=== PATIENT | male | born 1975 | race Caucasian/White ===

== ENCOUNTER 2018-05-04 12:45 | Inpatient (IN) | payer BC, OTHER ==
[~2018-05-04] VITALS: Ht 180.3 cm; Wt 96.6 kg
--- NOTE | ~2018-05-04 | H ---
[facility] [place] [address] HISTORY AND PHYSICAL Name: SAJI GOODE Room #: 512-P ADM IN M.R.#: [id number] Admission: 05/04/18 Attend Phys: Chidi Huber MD Discharge: Date of : 75 Report #: [id number] THIS REPORT FOR: //name// CC: Chidi Huber [facility] unknown DATE OF SERVICE: 05/04/2018 HISTORY OF PRESENT ILLNESS: A 43-year-old white male originally admitted to [facility] on 05/02/2018 after his found him having a seizure and falling out of bed. He was admitted to [facility]. He was thought to have alcohol withdrawal seizures. He was noted to have a history of drinking 2 glasses of whiskey per day, but apparently went "cold turkey." His course was complicated by alcohol withdrawal, was needing Precedex for sedation. Neurology was consulted along with Psychiatry. He was thought to have alcohol withdrawal seizures, although EEG showed abnormalities of the left occipital lobe. He underwent an MRI of the brain, which indeed showed multiple subacute ischemic infarcts including left cerebral hemisphere and a left occipital area. There was a small focus of hemorrhagic transformation of the left occipital area. He was treated in the Intensive Care Unit for an acute hypoxemic respiratory failure, likely aspiration pneumonia, was noted to have vascular congestion, pulmonary edema. He had acute renal insufficiency that resolved. Pulmonary Medicine was closely involved. Neurology followed closely, noted that the CVA was cryptogenic, but that a workup to include any cardiac embolization is needed and will need to be arranged by Cardiology. He was felt to be ready for transfer for acute in-hospital inpatient rehabilitation. There is reference to an event monitor that will need to be placed when being discharged from the rehab coles. At this point, he has been admitted for acute in-hospital inpatient rehabilitation. He has deficits with right-sided coordination and balance issues. He is also being further assessed regarding cognitive issues. PAST MEDICAL HISTORY: Prior history of ETOH treatment. He was apparently in an alcohol rehab facility for 30 days in [place]. He had some followups with AA, but never had a sponsor and unfortunately relapsed. He has a history of hypertension. HABITS: Include daily tobacco 1 pack per day premorbidly and he plans on quitting. MEDICATIONS: Please see the full medication listing. This includes vitamins, herbals, and supplements. ALLERGIES: No known drug allergies. SOCIAL HISTORY: Works in IT. He lives with his . They have five children with 3 in the house. This is apparently his second [place] [address] HISTORY AND PHYSICAL Name: SAJI GOODE Room #: 512-P [facility] IN M.R.#: [id number] Admission: 05/04/18 Attend Phys: Chidi Huber MD Discharge: Date of : 75 Report #: [id number] for 10 years. He was fully independent, ambulatory, did computer work and apparently had started drinking more at night while on the computer. REVIEW OF SYSTEMS: No current complaints of chest pain, shortness of breath, abdominal discomfort. No complaints of extremity pain. He has concern regarding decreased coordination and decreased balance. PHYSICAL EXAMINATION: GENERAL: The patient was actually seen late yesterday 43-year-old white male, in no obvious distress. VITAL SIGNS: Temperature 98.7, pulse 104, respirations 18, blood pressure 125/85. NEUROLOGIC: Facies appeared to be symmetric. No obvious visual field neglect to confrontation able to verbalize and follow basic commands without difficulty. CHEST: Sounded clear to auscultation. CARDIAC: Regular rate and rhythm. ABDOMEN: Bowel sounds positive, nontender. GENITOURINARY AND RECTAL: Deferred. EXTREMITIES: He has functional range of motion of both upper extremities with some decreased coordination of that right upper extremity with some dysmetria and some decreased fine finger dexterity. Right lower extremity, [id number] may have some mild decreased coordination. Upper extremity strength is a grade 4+, right lower extremity strength is grade 4+, left upper and left lower extremity strength is 4+. DTRs are 1 both upper extremities 1 both lower extremities. No obvious sensory decrease to simultaneous stimulation. IMPRESSION: This is a 43-year-old right-handed white male with the following problem list: 1. 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 2. Left occipital infarct with hemorrhagic transformation. 3. Right-sided dysmetria. 4. Need to more closely rule out any visual field or visual deficits with the noted left occipital cerebrovascular accident. 5. Acute hypoxemic respiratory failure, which appears improved/resolved. 6. Severe alcohol withdrawal, which appears resolved. 7. Pancreatitis. 8. Seizures. 9. Aspiration pneumonia. 10. Pulmonary edema. 11. Alcohol use disorder. 12. Hypertension. PLAN: The patient is admitted for acute in-hospital inpatient rehabilitation. We will need a repeat MRI of the brain in approximately 1 week. As per Neurology recommendation with the anticipation that the hemorrhagic transformation/hemorrhagic change should be resorbed by then. We will also ask [address] [address] HISTORY AND PHYSICAL Name: SAJI GOODE Room #: 512-P ADM IN M.R.#: [id number] Admission: 05/04/18 Attend Phys: Chidi Huber MD Discharge: Date of : 75 Report #: [id number] Cardiology to be involved as indicated above. From a postadmission physician evaluation perspective, there are no relevant changes since the preadmission screening. Please see the review of prior and current medical and functional conditions and comorbidities. Please see the patient's previous and current functional status. As far as risk of complications, the patient has multiple medical comorbidities as noted above. Initial plan of care involves the interdisciplinary acute inpatient rehabilitation program with the goal of maximizing his functional independence, so that he can hopefully return back to his prior living situation. Measurable functional goals would be for the patient to become modified independent with transfers, mobility, ADLs, cognition and communication so they can return back home. Prognosis is reasonably good with estimated length of stay probably 7-10 days, pending progress. Potential barriers would include the multiple medical comorbidities and decreased functional status. By: [id number] Chidi Huber MD /nt
--- NOTE | ~2018-05-04 | PLAN ---
[facility] [place] [address] REHAB UNIT PLAN OF CARE Name: SAJI GOODE Room #: 512-P ADM IN M.R.#: [id number] Admission: 05/04/18 Attend Phys: Chidi Huber MD Discharge: Date of : 75 Report #: [id number] THIS REPORT FOR: //name// CC: Wyatt Bridger DO Chidi Huber [facility] unknown DATE OF SERVICE: 05/07/2018 PROGRESS NOTE/OVERALL PLAN OF CARE SUBJECTIVE: The patient is seen back today in followup. He is in no distress. Last recorded temperature 36.5, pulse 90, respirations 18, blood pressure 136/92. He is alert, pleasant, and oriented. He has done well from a functional mobility perspective and is now modified independent in his room without gait aids. He is ambulating 350 feet without a device currently with supervision and is going up and down 12 steps contact guard. In occupational therapy, he is noted to only need setup for lower body dressing. In speech therapy, he is noted to have moderate memory deficits and mild cognitive deficits. ASSESSMENT: 1. 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 2. Left occipital infarct with hemorrhagic transformation. 3. Right-sided dysmetria. 4. Seizures, noted to be alcohol withdrawal seizures. 5. Acute hypoxic respiratory failure, which resolved. 6. Pancreatitis. 7. Alcohol use disorder. 8. Hypertension. PLAN: The overall plan of care is based on the preadmission screen, post-admission physician evaluation, and information garnered from therapy assessments. 1. Estimated length of stay is we will plan for discharge tomorrow. 2. Medical prognosis is good. 3. Anticipated interventions include the interdisciplinary acute inpatient rehabilitation program. 4. Anticipated functional outcomes are for him to return back to the home setting with his tomorrow. We will be determining with the therapist what type of outpatient therapy would be warranted. I indicated to him that he should not drive and should not return back to work until he follows up with his primary care physician, Dr. Wyatt Sparks in [place]. We will also need [facility] [address] [place] [address] REHAB UNIT PLAN OF CARE Name: SAJI GOODE Room #: 512-P [facility] IN ..#: [id number] Admission: 05/04/18 Attend Phys: Chidi Huber MD Discharge: Date of : 75 Report #: [id number] outpatient alcohol rehabilitation involvement with case management to be involved in setting this up as well. Plan is for discharge tomorrow. By: [id number] Chidi Huber MD /nt
[~2018-05-04 12:45] MED LIST: ASPIR 8181 MG PO; BUSPIRONE HCL10 MG PO; CARDIZEM CD 18180 M3 PO; CHLORDIAZEPOXID25 M1 PO; CLONIDINE HCL0.2 M2 PO; CRESTOR10 MG PO; GLUCOPHAGE500 MG PO; LEXAPRO20 MG PO; LIPITOR40 MG PO; NICOTINE TRANSD21 M1 TRANSDERM; PRENATAL PO; VITAMIN B-1100 M2 PO; WELLBUTRIN 100100 MG PO
[2018-05-04 20:30] VITALS: BP 125/85
[2018-05-05 08:03] LABS: HEMATOCRIT 36.7 % (42.0-52.0); HEMOGLOBIN 12.7 gm/dL (14.0-18.0); MCH 35.2 pg (26.0-34.0); MCHC 34.7 g/dL (28.0-37.0); MCV 101.4 fL (80.0-100.0); RBC 3.62 mil/uL (4.50-6.00); RDW 14.8 % (10.5-14.5); WBC 16.7 thou/uL (4.0-11.0)
[2018-05-05 08:18] LABS: CALCIUM 8.9 mg/dL (8.5-10.1); CREATININE 0.9 mg/dL (0.7-1.3); POTASSIUM 3.4 mmol/L (3.5-5.1)
[2018-05-05 08:50] VITALS: BP 144/94
[2018-05-05 19:47] VITALS: BP 138/93
[2018-05-06 05:05] LABS: ALBUMIN 2.3 g/dL (3.4-5.0); CALCIUM 8.7 mg/dL (8.5-10.1); CREATININE 0.8 mg/dL (0.7-1.3); PHOSPHORUS 3.6 mg/dL (2.5-4.9)
[2018-05-06 08:00] VITALS: BP 152/93
[2018-05-06 19:21] VITALS: BP 152/101
[2018-05-07 07:58] VITALS: BP 136/92
[2018-05-07 12:28] VITALS: BP 136/92
[2018-05-07 14:46] VITALS: BP 136/92
[2018-05-07 21:18] VITALS: BP 137/92
[2018-05-08 04:46] LABS: ABSOLUTE NEUTROPHILS 8.5 thou/uL (1.4-8.2); BASOPHILS 1.3 % (0.0-2.0); EOSINOPHILS 0.8 % (0.0-3.0); HEMATOCRIT 38.5 % (42.0-52.0); LYMPHOCYTES 13.4 % (24.0-44.0); MCH 34.7 pg (26.0-34.0); MCHC 33.8 g/dL (28.0-37.0); MCV 102.6 fL (80.0-100.0); PLATELET COUNT 443 thou/uL (150-400); POLYS 76.5 % (36.0-66.0); RBC 3.75 mil/uL (4.50-6.00); RDW 14.7 % (10.5-14.5); WBC 11.1 thou/uL (4.0-11.0)
[2018-05-08 04:58] LABS: CALCIUM 8.8 mg/dL (8.5-10.1); CREATININE 0.7 mg/dL (0.7-1.3); MAGNESIUM 1.9 mg/dL (1.8-2.4)
[2018-05-08 05:05] LABS: POTASSIUM 4.9 mmol/L (3.5-5.1)
[2018-05-08 08:00] VITALS: BP 132/90
[2018-05-08] MEDS ORDERED: LIPITOR40 MG PO ×2 (08:26→09:59)
[2018-05-08] MEDS ORDERED: CARDIZEM CD 18180 M3 PO ×2 (08:26→09:59)
[2018-05-08] MEDS ORDERED: GLUCOPHAGE500 MG PO ×2 (08:26→09:59)
[2018-05-08] MEDS ORDERED: FOLIC ACID1 MG PO ×2 (08:26→09:59)
[2018-05-08] MEDS ORDERED: CLONIDINE HCL0.2 M2 PO ×2 (08:26→09:59)
[2018-05-08 09:50] VITALS: BP 136/92
[2018-05-08] MEDS ORDERED: THERAPY (09:55)
[2018-05-08] MEDS ORDERED: PRENATAL PO (09:59)
[2018-05-08] MEDS ORDERED: VITAMIN B-1100 M2 PO (09:59)
[2018-05-08 10:15] VITALS: BP 136/92
== END 2018-05-08 11:28 | disposition home health service (06) | DRG 64 ==
PROVIDERS: Hospitalist; Nurse Practitioner; Physical Medicine & Rehabilitation
DX: I63.9 Cerebral infarction, unspecified (principal); I61.1 Nontraumatic intracerebral hemorrhage in hemisphere, cortical; J96.01 Acute respiratory failure with hypoxia; K85.90 Acute pancreatitis without necrosis or infection, unspecified; J69.0 Pneumonitis due to inhalation of food and vomit; F10.239 Alcohol dependence with withdrawal, unspecified; E87.1 Hypo-osmolality and hyponatremia; R27.8 Other lack of coordination; Y90.9 Presence of alcohol in blood, level not specified; I10 Essential (primary) hypertension; R56.9 Unspecified convulsions; E86.1 Hypovolemia; T50.3X5A Adverse effect of electrolytic, caloric and water-balance agents, initial encounter; E74.39 Other disorders of intestinal carbohydrate absorption; Y92.89 Other specified places as the place of occurrence of the external cause
CPT/HCPCS: 10112

== ENCOUNTER 2018-06-09 13:58 | Inpatient (IN) | payer BC, OTHER ==
[2018-06-09] VITALS (8 sets, daily range): BP systolic 146–175; BP diastolic 111–126
[~2018-06-09] VITALS: Ht 180.3 cm; Wt 107.2 kg
--- NOTE | ~2018-06-09 | HC ---
[facility] [place] [address] CONSULTATION Name: SAJI GOODE Room #: 417-I [facility] IN M.R.#: [id number] Admission: 06/09/18 Attend Phys: Felisha Osorio Discharge: 06/12/18 Date of : 75 Report #: [id number] THIS REPORT FOR: //name// CC: Wyatt Rudea FAM unknown Felisha Osorio DATE OF SERVICE: 06/10/2018 HISTORY OF PRESENT ILLNESS: The patient is a 43-year-old male with a hospitalization last month for seizures, possibly due to EtOH withdrawal. He has a long history of alcohol abuse. He has not had any alcohol since last admission. He was noted to have an elevated lipase of 9000 on 04/25/2018. This normalized by 05/01/2018. His lipase today is 1198. No previous known history of CT scan of his abdomen. The patient began having nausea, vomiting, some abdominal pain, but also back pain at home on . This became worse. He also reports vomiting coffee-ground type emesis. He was scheduled to have an EGD and colonoscopy tomorrow as an outpatient locally. Reason for colonoscopy was a small amount of bright red blood per rectum at times with wiping. The patient does have a history of peptic ulcer disease 9 years ago reportedly. He has never had a colonoscopy. He is taking aspirin for a history of strokes. He also takes Nexium on a daily basis. He does report decreased appetite in general and abdominal bloating as well as early satiety. He denies any melanotic stools. He was evaluated at [facility] and had a CT scan of the abdomen and pelvis yesterday. This showed a large cystic structure surrounding the body and the tail of the pancreas measuring 14.3 x 10.0 cm containing some septation within it. Findings could be pancreatic necrosis with large pancreatic pseudocyst or abscess. A small renal calculus was also noted. Otherwise, negative. The patient denies any fevers or chills recently. He denies any chest pain or shortness of breath currently. His weight has been fairly stable. PAST MEDICAL HISTORY: Pancreatitis, history of alcohol abuse, history of CVA, previous history of seizure, hypertension, gastroesophageal reflux disease, previous history of peptic ulcer disease, diabetes. ALLERGIES: No known drug allergies. MEDICATIONS ON ADMISSION: Aspirin, thiamine, vitamin, Lipitor, clonidine, Cardizem, Glucophage. The patient states he was taking Nexium at home as well. REVIEW OF SYSTEMS: As per HPI. FAMILY HISTORY: Negative for colon cancer or inflammatory bowel disease. [address] [address] CONSULTATION Name: JAYJERARDOSAJI LAMB Room #: 417-I [facility] IN M.R.#: [id number] Admission: 06/09/18 Attend Phys: Felisha Osorio Discharge: 06/12/18 Date of : 75 Report #: [id number] SOCIAL HISTORY: He has a long history of cigarette smoking, history of alcohol abuse, states he has not had any alcohol in the last month. PHYSICAL EXAMINATION: VITAL SIGNS: Temperature is 98.5, pulse 72, blood pressure 129/69, respiratory rate is 18. GENERAL: He is alert and oriented x 3, in no acute distress. HEENT: Sclerae nonicteric. Oropharynx clear. NECK: Supple without lymphadenopathy. CARDIOVASCULAR: Regular rate and rhythm. CHEST: Clear to auscultation bilaterally. ABDOMEN: Soft. He is mildly distended. He is tender to palpation. EXTREMITIES: No cyanosis, clubbing or edema. LABORATORY DATA: Sodium is 135, potassium 3.2, chloride 107, bicarbonate 17, BUN 6, creatinine 0.9, glucose 121, lipase 1198, amylase 241, calcium 9.8, phosphorus 2.2, magnesium 1.2, present on the labs here. Labs from the Emergency Room at [facility] yesterday showed hemoglobin of 19.8, WBC is 10.7, platelet count 294. His lipase there was 1275. His bilirubin was 0.5, AST 13, ALT 17, alkaline phosphatase 153. Alcohol level was less than 3. ASSESSMENT AND PLAN: 1. Pancreatitis. CT showing a large likely pseudocyst 14 x 10 cm in size. I suspect this was present from his last hospitalization for pancreatitis. He has a known history of alcohol abuse, which is likely etiology; however, he has been abstinent for the last month. Would recommend minimal clear liquids at this time as tolerated. Continue to monitor lipase. Agree with antibiotics at this time. His white count was 10.7 yesterday. We will need to follow labs closely. At some point, may need drainage of pseudocyst. This could potentially be done at a later date with endoscopic ultrasound assistance. 2. Upper gastrointestinal bleed, history of coffee-ground emesis. Hemoglobin was 19 yesterday at [facility]. Would recommend proceeding with an upper endoscopy tomorrow. Agree with PPI therapy and holding the aspirin. We discussed holding on colonoscopy at this time as the patient has large pseudocyst and recent nausea and vomiting and would be difficult to prep. Would consider colonoscopy at a later date. Thank you for allowing me to participate in his care. <ELECTRONICALLY SIGNED> By: Yony Claudio MD 06/20/18 0823 [id number] 2300 Yony Claudio MD /chaim
[~2018-06-09 13:58] MED LIST changes: +FOLIC ACID1 MG PO; +THERAPY
[2018-06-09 16:38] LABS: ALBUMIN 3.3 g/dL (3.4-5.0); CALCIUM 10.9 mg/dL (8.5-10.1); CREATININE 1.3 mg/dL (0.7-1.3); MAGNESIUM 1.9 mg/dL (1.8-2.4); PHOSPHORUS 2.7 mg/dL (2.5-4.9); POTASSIUM 4.1 mmol/L (3.5-5.1)
[2018-06-09 16:44] LABS: TROPONIN-I <0.06 ng/mL (<0.06)
[2018-06-09 19:19] LABS: URINE BLOOD TRACE (Negative); URINE CLARITY CLEAR; URINE COLOR YELLOW; URINE GLUCOSE-RANDOM* 2+ (Negative); URINE KETONES 3+ (Negative); URINE LEUKOCYTES-REFLEX NEGATIVE (Negative); URINE NITRITE-REFLEX NEGATIVE (Negative); URINE PROTEIN (DIPSTICK) 1+ (Negative); URINE SPECIFIC GRAVITY >= 1.030 (1.005-1.035); URINE UROBILINOGEN 0.2 E.U./dl (0.2-1.0)
[2018-06-09 19:27] LABS: ICTOTEST (BILI CONFIRMATORY) Negative (Negative)
[2018-06-09 19:28] LABS: HYALINE CASTS 0-3 Few /LPF (None Seen)
[2018-06-09 19:30] LABS: BACTERIA-REFLEX None Seen /HPF (None Seen); CRYSTALS None Seen /LPF (None Seen); SQUAMOUS 0-3 Few /LPF (0-3); URINE RBC 0-2 Rare /HPF (0-2); URINE WBC-REFLEX 0-5 Rare /HPF (0-5)
[2018-06-09 19:31] LABS: MUCUS 0-3 Light strn/LPF (None Seen)
[2018-06-09 21:56] LABS: ALBUMIN 2.7 g/dL (3.4-5.0); CALCIUM 9.3 mg/dL (8.5-10.1); MAGNESIUM 1.4 mg/dL (1.8-2.4); POTASSIUM 3.7 mmol/L (3.5-5.1)
[2018-06-10] VITALS (11 sets, daily range): BP systolic 95–142; BP diastolic 69–104
[2018-06-10 01:40] LABS: ALBUMIN 2.4 g/dL (3.4-5.0); CALCIUM 9.4 mg/dL (8.5-10.1); CREATININE 0.9 mg/dL (0.7-1.3); PHOSPHORUS 2.4 mg/dL (2.5-4.9); POTASSIUM 3.6 mmol/L (3.5-5.1)
[2018-06-10 07:46] LABS: ALBUMIN 2.6 g/dL (3.4-5.0); AMYLASE 241 U/L (25-115); CALCIUM 9.8 mg/dL (8.5-10.1); CREATININE 0.9 mg/dL (0.7-1.3); LIPASE 1198 U/L (73-393); MAGNESIUM 1.9 mg/dL (1.8-2.4); PHOSPHORUS 2.2 mg/dL (2.5-4.9); POTASSIUM 3.2 mmol/L (3.5-5.1)
[2018-06-11 03:31] VITALS: BP 124/93
[2018-06-11 04:05] LABS: ABSOLUTE NEUTROPHILS 2.3 thou/uL (1.4-8.2); BASOPHILS 0.5 % (0.0-2.0); EOSINOPHILS 2.2 % (0.0-3.0); HEMATOCRIT 35.4 % (42.0-52.0); LYMPHOCYTES 39.1 % (24.0-44.0); MCH 33.6 pg (26.0-34.0); MCHC 33.9 g/dL (28.0-37.0); MONOCYTES 6.9 % (1.0-8.0); PLATELET COUNT 218 thou/uL (150-400); POLYS 51.3 % (36.0-66.0); RBC 3.58 mil/uL (4.50-6.00); RDW 13.8 % (10.5-14.5); WBC 4.5 thou/uL (4.0-11.0)
[2018-06-11 04:17] LABS: ALBUMIN 2.2 g/dL (3.4-5.0); CALCIUM 9.9 mg/dL (8.5-10.1); CREATININE 0.6 mg/dL (0.7-1.3); TOTAL BILIRUBIN 0.4 mg/dL (<0.1-1.0)
[2018-06-11 04:20] LABS: POTASSIUM 2.9 mmol/L (3.5-5.1)
[2018-06-11 17:02] VITALS: BP 139/105
[2018-06-11 19:27] VITALS: BP 149/105
[2018-06-12 05:52] LABS: ABSOLUTE NEUTROPHILS 3.6 thou/uL (1.4-8.2); BASOPHILS 0.5 % (0.0-2.0); EOSINOPHILS 1.6 % (0.0-3.0); HEMATOCRIT 36.4 % (42.0-52.0); HEMOGLOBIN 12.2 gm/dL (14.0-18.0); LYMPHOCYTES 23.6 % (24.0-44.0); MCH 32.7 pg (26.0-34.0); MCHC 33.6 g/dL (28.0-37.0); MCV 97.5 fL (80.0-100.0); MONOCYTES 7.9 % (1.0-8.0); PLATELET COUNT 213 thou/uL (150-400); POLYS 66.4 % (36.0-66.0); RBC 3.73 mil/uL (4.50-6.00); RDW 14.3 % (10.5-14.5); WBC 5.4 thou/uL (4.0-11.0)
[2018-06-12 06:06] LABS: ALBUMIN 2.3 g/dL (3.4-5.0); CALCIUM 9.3 mg/dL (8.5-10.1); CREATININE 0.6 mg/dL (0.7-1.3); PHOSPHORUS 3.9 mg/dL (2.5-4.9)
[2018-06-12 07:53] VITALS: BP 147/103
[2018-06-12] MEDS ORDERED: LANTUS100 UNIT/M SUBQ (10:19)
[2018-06-12] MEDS ORDERED: PANTOPRAZOLE SO40 M1 PO (10:19)
[2018-06-12] MEDS ORDERED: NOVOLOG100 UNIT/1 SUBQ (10:20)
[2018-06-12] MEDS ORDERED: TRAMADOL 50 MG50 MG PO (10:20)
[2018-06-12 12:27] VITALS: BP 147/103
[2018-06-12 23:06] LABS: GLYCOHEMOGLOBIN (HGB A1C) 11.2 % (4.8-5.6)
== END 2018-06-12 13:43 | disposition home or self-care (01) | DRG 377 ==
LOC: 2N 13:58 → 4E 15:08 → ICU 15:08 → 4E 06-10 13:51 → ENTRNSPT 06-12 13:31 → EDTRNSPTSTS 06-12 13:34 → 4E 06-12 13:43
PROVIDERS: Hospitalist; Nurse Practitioner Acute Care
PROC: 0DJ08ZZ Inspection of Upper Intestinal Tract, Via Natural or Artificial Opening Endoscopic (ICD-10-PCS; principal; 2018-06-11)
DX: K92.2 Gastrointestinal hemorrhage, unspecified (principal); K85.90 Acute pancreatitis without necrosis or infection, unspecified; E10.10 Type 1 diabetes mellitus with ketoacidosis without coma; K86.3 Pseudocyst of pancreas; K86.1 Other chronic pancreatitis; K86.81 Exocrine pancreatic insufficiency; I10 Essential (primary) hypertension; F10.10 Alcohol abuse, uncomplicated; F32.9 Major depressive disorder, single episode, unspecified; Y90.9 Presence of alcohol in blood, level not specified; E86.0 Dehydration; N20.0 Calculus of kidney; K21.0 Gastro-esophageal reflux disease with esophagitis; F17.210 Nicotine dependence, cigarettes, uncomplicated; Z79.82 Long term (current) use of aspirin; Z79.899 Other long term (current) drug therapy; Z86.73 Personal history of transient ischemic attack (TIA), and cerebral infarction without residual deficits; Z87.11 Personal history of peptic ulcer disease
CPT/HCPCS: 10078; 10783; 62110; 62900; 70005

== ENCOUNTER → 2018-07-30 | Outpatient (CLI) | payer BC, OTHER ==
[~2018-07-30] VITALS: Ht 180.3 cm; Wt 81.6 kg
[~2018-07-30] MED LIST changes: +ATORVASTATIN CA40 MG PO; +CATAPRES0.2 MG PO; +LANTUS100 UNIT/M SUBQ; +NOVOLOG100 UNIT/1 SUBQ; +PANTOPRAZOLE SO40 M1 PO; +PAXIL 20 MG TAB20 M1 PO; +PROTONIX40 M1 PO; +TRAMADOL 50 MG50 MG PO
--- NOTE | ~2018-07-30 | PATH ---
[facility] [address] [place] [address] PATHOLOGY RPT PROCEDURE Name: SAJI GOODE Room #: REG WANDA Zarate.#: [id number] Admission: 07/30/18 Date of : 75 Discharge: Report #: [id number] Path Case #: [id number] [facility] Accession Number: [id number] . 01 Material submitted: . BX OF ESOPHAGUS R/O FRIEDMAN'S . 01 Clinical history: . Pre-OP DX: HX esophagitis Post-OP DX: Internal hemorrhoids . 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 - Moderate acute and chronic inflammation associated with reactive changes; no definite dysplasia present. - Squamous mucosa with mild esophagitis. . (IUV:at;07/31/2018) QTA/07/31/2018 . 02 Comment: The above diagnosis of Friedman's esophagus is made due to presence of intestinal metaplasia and with the assumption that the biopsies were obtained from the columnar mucosa in the distal esophagus located at least 1 cm proximal to the top of the gastric folds as per the 2016 ACG guidelines. . (IUV:at;07/31/2018) . 02 Electronically signed: . Kylie Siegel MD, Pathologist NPI- [id number] . 01 Gross description: . Received in formalin labeled "Saji Goode, BX of esophagus, rule out Friedman's," are 6 segments of escobar soft tissue measuring 1.3 x 0.6 x 0.2 cm in aggregate dimensions and ranging from 0.2 to 0.3 cm in maximum dimension. The specimen is submitted entirely in cassette A1. (TSD; 07/30/2018) TOB/TOB . 02 Pathologist provided ICD-10: K22.70, K20.9 . 02 [place] [address] PATHOLOGY RPT PROCEDURE Name: SAJI GOODE [id number]mission: 07/30/18 Date of : 75 Discharge: Report #: [id number] Path Case #: [id number] Specimen Comment: A courtesy copy of this report has been sent to Specimen Comment: [phone], . Specimen Comment: Report sent to / DR BURCH Performed at: [address] [facility] [address], [place], [place] [id number] MD Raymond Malave MD Phone: [phone] Performed at: [address] [facility] [id number] MD Kylie Siegel MD Phone: [phone]
== END | disposition home or self-care (01) ==
LOC: GI 07:22
DX: K64.8 Other hemorrhoids (principal); K22.70 Barrett's esophagus without dysplasia; K21.9 Gastro-esophageal reflux disease without esophagitis; K20.9 Esophagitis, unspecified; K44.9 Diaphragmatic hernia without obstruction or gangrene; I10 Essential (primary) hypertension; E11.9 Type 2 diabetes mellitus without complications; Z86.73 Personal history of transient ischemic attack (TIA), and cerebral infarction without residual deficits; Z87.19 Personal history of other diseases of the digestive system
CPT/HCPCS: 62110; 62900